=== PATIENT | female | born 1980 | race Caucasian/White ===

== ENCOUNTER 2020-04-11 14:32 | Outpatient (CLI) | payer OTHER, SELFPAY ==
--- NOTE | 2020-04-11 14:39 | XR_ITS ---
WS: [id number] ELBOW RIGHT TECHNIQUE: 2 views of the right elbow CLINICAL INFORMATION: RIGHT ELBOW PAIN COMPARISON: None. FINDINGS: No significant joint effusion. Distal humerus is normal in appearance. Normal radial head. Minimal ol ecranon spurring. No evidence of acute fracture dislocation. XR/XR elbow RT 2V [id number] IMPRESSION: 1. No acute fractures. 2. Slight olecranon spurring. 3. No other significant findings.
== END 2020-04-11 14:33 | disposition home or self-care (01) ==
PROVIDERS: Visit Provider Nurse Practitioner Family
DX: M25.521 Pain in right elbow (principal)
CPT/HCPCS: 73070

== ENCOUNTER 2020-04-23 14:04 | Outpatient (RCR) | payer OTHER, SELFPAY | END 2020-05-07 23:59 | disposition home or self-care (01) | LOC: SPT 14:04 | PROVIDERS: PCP Nurse Practitioner Family; Visit Provider Nurse Practitioner Family | DX: M25.521 Pain in right elbow (principal) | CPT/HCPCS: 97110; 97140; 97161 ==

== ENCOUNTER → 2020-07-24 09:13 | Outpatient (BNVA) | payer OTHER, SELFPAY | PROVIDERS: PCP Nurse Practitioner Family; Referring Provider Nurse Practitioner Family; Visit Provider Orthopaedic Surgery | DX: M25.521 Pain in right elbow (principal) | CPT/HCPCS: 73080 ==

== ENCOUNTER → 2020-09-15 13:22 | Outpatient (BNVA) | payer OTHER, SELFPAY | PROVIDERS: PCP Nurse Practitioner Family; Visit Provider Orthopaedic Surgery | DX: Z01.812 Encounter for preprocedural laboratory examination (principal); Z20.828 Contact with and (suspected) exposure to other viral communicable diseases | CPT/HCPCS: 87635 ==

== ENCOUNTER 2020-09-20 07:04 | Day surgery (SDC) | payer OTHER, SELFPAY ==
[2020-09-19 11:37] VITALS: BMI 30.1
--- NOTE | 2020-09-20 06:59 | W.PM.OPSUD ---
Surgery/Procedure H&P Update DATE OF PROCEDURE: September 20, 2020 DATE H&P PERFORMED: 09/05/20 PLANNED PROCEDURE: Operation Date: 09/20/20 08:15 Proposed Procedures p right elbow lateral epicondyle debridement 10312 M77.11(Right) - Jeanmarie Garcia MD
[2020-09-20 07:18] LABS: OR HCG Qualitative Urine Negative (Negative)
[2020-09-20 07:23] VITALS: BP 112/80; PULSE 89; RESP 18; TEMP 37.2; O2SAT 96
[2020-09-20] MEDS: sodium chloride 0.9% 1,000 ML 30 ML IV (07:25)
--- NOTE | 2020-09-20 07:59 | P.ANESASSM_ITS ---
Pre-Anesthetic Assessment Pre-Anesthetic Assessment: Height/Weight: Height 1.6 m Weight 77.111 kg Temp Pulse Resp BP Pulse Ox 99 F 89 18 112/80 96 09/20/20 07:23 09/20/20 07:23 09/20/20 07:23 09/20/20 07:23 09/20/20 07:23 Preop Diagnosis: Right lateral epicondylitis Proposed Procedure: Operation Date: 09/20/20 08:15 Proposed Procedures p right elbow lateral epicondyle debridement 40026 M77.11(Right) - Jeanmarie Garcia MD Was Beta Tova taken within 24 hours: N/A Last intake: Intake Last Liquid Date 09/19/20 Last Liquid Time 23:00 Last Solid Date 09/19/20 Last Solid Time 23:00 Social: Social History: No alcohol and No tobacco Exam: Pre-Anes Outpt Exam: alert, oriented x 3, clear to auscultation bilaterally and regular rate & rhythm Airway: Submandibular: WNL Cervical ROM: WNL MP: 2 Dentition: Full History/ROS: No significant history except as noted Anesthetic Plan: ASA status: 1 Anesthesia: Choice Other: [place] blk/MAC vs GA/LMA Risk of > 500 ml blood loss (7ml/kg in children): No Meds/Allergies Current Medications: Current Medications Generic Name Dose Route Start Last Admin Trade Name Freq PRN Reason Stop Dose Admin Sodium Chloride 1,000 mls @ 30 ml s/hr 09/20/20 07:15 09/20/20 07:25 Sodium Chloride 0.9% IV 09/21/20 07:14 30 mls/hr .Q24H VENESSA Administration PFSH Anesthesia PFSH: Social History Current gender identity: Female Data Anesthesia Other Labs: Laboratory Results - last 48 hr 09/20/20 07:17 Urine HCG, Qual Negative Cardiac Studies: No Data to Display
--- NOTE | 2020-09-20 09:06 | PM.OP ---
Operative Report Date of procedure: September 20, 2020 Pre-op Diagnosis: Right lateral epicondylitis Post-op diagnosis: same Post-op Findings: The patient has degenerative tissue at and just distal to the extensor tendon origin on the lateral epicondyle Procedure Done: Debridement right lateral epicondyle Pathology: none sent Anesthesia: General Estimated blood loss (mL): 10 Tourniquet time (min): 24 Findings: The patient has degenerative tissue at and just distal to the extensor tendon origin on the lateral epicondyle Condition: stable Disposition: PACU Procedure: The patient was given 2 g of Ancef and taken to the operating room. She was prepped and draped the usual fashion. A timeout was performed. A 3 cm long incision was made centered over the lateral epicondyle. Dissection was carried down under loupe magnification to the epicondyle and the extensor origin. Utilizing scalpel blade dissection was carried down sharply through periosteum and visualized proximal tendon to bone. The scalpel was used to elevate the origin up anteriorly and posteriorly and the split was carried approximately 1 cm distal to the level of the radial head. Poorly developed degenerative tissue was visualized at the extensor tendon insertion which was removed sharply with a scalpel blade. The tendon was then reapproximated with interrupted 2-0 Vicryl sutures with the knots buried. The skin was closed with 3-0 Vicryl and a running 3-0 Prolene. Xeroflo gauze, 4 x 4's, web roll, and a Jatinder wrap from wrist to arm were applied. She was placed in a sling, extubated, and taken to care of room in stable condition.
[2020-09-20 09:09] VITALS: BP 111/75; PULSE 84; RESP 11; TEMP 36.6; O2SAT 100
[2020-09-20 09:15] VITALS: BP 114/79; PULSE 81; RESP 17; O2SAT 100
[2020-09-20 09:20] VITALS: BP 110/77; PULSE 72; RESP 16; TEMP 36.6; O2SAT 99
[2020-09-20 09:29] VITALS: BP 105/66; PULSE 74; RESP 18; TEMP 36.2; O2SAT 100
[2020-09-20 09:39] VITALS: BP 117/67; PULSE 77; RESP 18; O2SAT 99
--- NOTE | 2020-09-20 10:30 | ANE.PACU2 ---
Inpatient post-anesthesia follow up: Airway intact: Yes Vital signs: Temperature 97.2 F Pulse Rate 77 Respiratory Rate 18 Blood Pressure 117/67 Pulse Oximetry 99 Oxygen Delivery Me thod Room Air Oxygen Flow Rate 6 Fraction of Inspir ed Oxygen Hydration adequate: Yes Nausea and vomiting: No Pain level: 1 Mental status: Baseline
== END 2020-09-20 10:08 | disposition home or self-care (01) ==
PROVIDERS: Anesthesiology; PCP Nurse Practitioner Family; Visit Provider Orthopaedic Surgery
PROC: (CPT 24359; principal; 2020-09-20 08:15)
DX: M77.11 Lateral epicondylitis, right elbow (principal)
CPT/HCPCS: 24359; 12345; 84703; J0690; J1100; J1885; J2370; J2405; J2704; J3010; J3490; J7030

== ENCOUNTER → 2021-08-19 16:08 | Outpatient (BNVA) | payer OTHER, SELFPAY | PROVIDERS: PCP Nurse Practitioner Family; Visit Provider Obstetrics & Gynecology | DX: Z12.4 Encounter for screening for malignant neoplasm of cervix (principal); N93.9 Abnormal uterine and vaginal bleeding, unspecified; N92.6 Irregular menstruation, unspecified; R53.83 Other fatigue; R63.5 Abnormal weight gain | CPT/HCPCS: 84443; 87624; 88305 ==

== ENCOUNTER → 2021-08-23 14:05 | Outpatient (BNVA) | payer OTHER, SELFPAY | PROVIDERS: PCP Nurse Practitioner Family; Visit Provider Obstetrics & Gynecology | DX: N94.10 Unspecified dyspareunia (principal); N93.9 Abnormal uterine and vaginal bleeding, unspecified; Z97.5 Presence of (intrauterine) contraceptive device | CPT/HCPCS: 76830 ==

== ENCOUNTER 2021-08-29 11:11 | Day surgery (SDC) | payer OTHER, SELFPAY ==
[2021-08-29] VITALS (7 sets, daily range): BP systolic 110–137; BP diastolic 60–84; PULSE 75–89; RESP 17–19; TEMP 36.4–36.9; O2SAT 98–100; BMI 33.6
[2021-08-29 11:26] LABS: OR HCG Qualitative Urine Negative (Negative)
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
[2021-08-29] MEDS: sodium chloride 0.9% 1,000 ML 30 ML IV ×2 (11:45→11:52)
--- NOTE | 2021-08-29 11:51 | W.PM.OPSUD ---
Surgery/Procedure H&P Update DATE OF PROCEDURE: August 29, 2021 DATE H&P PERFORMED: 08/29/21 H&P UPDATE INFORMATION: I have reviewed H&P completed within last 30 days, I have examined patient prior to procedure and No changes to prior documentation PREOP DIAGNOSIS: embedded iud, endometrial polyps and fibroids PLANNED PROCEDURE: Operation Date: 08/29/21 12:30 Proposed Procedures p Hysteroscopic IUD Removal(Not Applicable) - Francesco Nieto MD
[2021-08-29 11:54] LABS: OR HCG Qualitative Urine Negative (Negative)
[2021-08-29] MEDS: acetaminophen 1,000 MG/100 ML PIGGYBACK 400 MG IV (12:00)
[2021-08-29 12:09] LABS: Basophils % 0.3 %; Eosinophils # 0.1 10^3/uL (0.0-0.8); Eosinophils % 1.9 %; Hematocrit 43.4 % (37.0-47.0); Hemoglobin 14.6 g/dL (11.5-15.3); Lymphocytes # 2.1 10^3/uL (0.8-4.8); Lymphocytes % 28.3 %; Mean Corpuscular HGB Conc 33.6 g/dL (30.0-36.0); Mean Corpuscular Hemoglobin 30.2 pg (28.0-34.0); Mean Corpuscular Volume 89.9 fl (81-99); Mean Platelet Volume 9.9 fL (7.4-10.4); Monocytes # 0.3 10^3/uL (0.2-0.9); Monocytes % 4.2 %; Neutrophils # 4.83 10^3/uL (1.8-7.7); Nucleated Red Blood Cells % 0 %; Platelet Count 221 10^3/cmm (130-400); Red Blood Count 4.83 10^6/uL (4.1-5.3); Red Cell Distribution Width 11.9 % (12.1-15.1); White Blood Count 7.4 10^3/uL (4.0-10.0)
--- NOTE | 2021-08-29 12:23 | PM.OP ---
Operative Report Date of procedure: August 29, 2021 Pre-op Diagnosis: embedded iud, endometrial polyps and fibroids Post-op diagnosis: same Post-op Findings: Embedded IUD. Procedure Done: Hysteroscopy: Hysteroscopic removal of IUD, dilation and curettage Specimens removed/disposition: Endometrial curettings Surgeon: Francesco Nieto MD Anesthesia: MAC Estimated blood loss (mL): 5 IV fluids (mL): 300 Complications: None Findings: Embedded IUD Condition: stable Disposition: PACU Brief History: Mrs. Katz 40-year-old female with pelvic pain. Diagnosed with an embedded IUD and possible endometrial polyp. She was informed of the risks and benefits of a hysteroscopy with dilation and curettage. Risks included but were not limited to bleeding, infection, injury to the vulva, vagina, or cervix, and uterine perforation. The patient expressed understanding of the risks involved, all questions were answered, and the patient consented to the procedure and signed the informed consent. . Procedure: After informed consent, the risks included but were not limited to bleeding, infection, injury to internal organs. The patient was counseled on a possible laparotomy and on the potential need for hysterectomy. The patient expressed understanding of the risks involved, all questions were answered, and the patient consented to the procedure. The patient was taken to the operating room where general anesthesia was administered. She was placed in the dorsal lithotomy position and prepped and draped in sterile fashion. A time out procedure was performed. The patient was examined under anesthesia and found to have a normal uterus with normal adnexa. A sterile speculum was placed in the vagina, and the anterior lip of cervix was grasped with the single toothed tenaculum. The uterus was then gently sounded to 7 cm, and the cervix was dilated with cervical dilators. A 2.7-cm hysteroscope advanced gently to the uterine fundus while visualizing the monitor. Survey of the uterine cavity showed: The embedded IUD to the posterior uterine wall. A grasper was inserted to the hysteroscopy channel and the IUD was grasped and removed from the uterus without complications. The fundus normal proliferative endometrium; left ostium, and lateral wall with proliferative endometrium; right ostium, and lateral wall with proliferative endometrium; anterior and posterior jarrett are with proliferative endometrium; endocervical canal is normal. The curette was advanced gently to the uterine fundus rotated to clear the uterus. The curettage was then performed until a gritty texture was noted. Hysteroscopy was reinserted. There was minimal bleeding noted and the tenaculum removed with goad hemostasis noted. The patient tolerated the procedure well. The patient was taken to the recovery area in stable condition.
[2021-08-29 12:25] LABS: Alanine Aminotransferase 13 U/L (0-33); Albumin Level 4.1 g/dL (3.5-5.2); Alkaline Phosphatase 116 IU/L (35-105); Anion Gap 18.9 (5-19); Aspartate Amino Transferase 13 U/L (0-32); Blood Urea Nitrogen 8 mg/dL (6-20); Calcium 8.3 mg/dL (8.5-10.5); Carbon Dioxide 19 mmol/L (22-29); Chloride 102 mmol/L (98-107); Globulin 3.6 g/dL (1.3-4.6); Glomerular Filtration Rate 109.6 mL/min (90-130); Glucose 88 mg/dL (65-115); Osmolality Calculated 280 mOsm/kg (285-295); Potassium 3.9 mmol/L (3.5-5.1); Sodium 136 mmol/L (136-145); Total Bilirubin 0.3 mg/dL (0.15-1.2); Total Protein 7.7 g/dL (6.6-8.7)
[2021-08-29] MEDS: ibuprofen 800 mg tablet PO (13:23)
--- NOTE | 2021-08-29 15:10 | ANE.PACU2 ---
Inpatient post-anesthesia follow up: Airway intact: Yes Vital signs: Temperature 98.0 F Pulse Rate 88 Respiratory Rate 18 Blood Pressure 126/77 Pulse Oximetry 100 Oxygen Delivery Me thod Room Air Oxygen Flow Rate Fraction of Inspir ed Oxygen Hydration adequate: Yes Nausea and vomiting: No Pain level: 1 Mental status: Baseline
== END 2021-08-29 14:25 | disposition home or self-care (01) ==
PROVIDERS: PCP Nurse Practitioner Family; Visit Provider Obstetrics & Gynecology
PROC: 0UPD8HZ Removal of Contraceptive Device from Uterus and Cervix, Via Natural or Artificial Opening Endoscopic (ICD-10-PCS; CPT 58301; principal; 2021-08-29 12:30)
PROC: (CPT 58120; 2021-08-29 12:30)
DX: T83.39XA Other mechanical complication of intrauterine contraceptive device, initial encounter (principal); N84.0 Polyp of corpus uteri; D25.9 Leiomyoma of uterus, unspecified; J44.9 Chronic obstructive pulmonary disease, unspecified
CPT/HCPCS: 58562; 36415; 80053; 81025; 84703; 85025; 88305; J0690; J2704; J3010; J7030

== ENCOUNTER → 2021-10-17 13:18 | Outpatient (BNVA) | payer OTHER, SELFPAY | PROVIDERS: PCP Nurse Practitioner Family; Visit Provider Obstetrics & Gynecology | DX: Z30.9 Encounter for contraceptive management, unspecified (principal) | CPT/HCPCS: 81025 ==

== ENCOUNTER 2022-03-31 09:54 | Outpatient (CLI) | payer OTHER, SELFPAY ==
[2022-03-31 10:29] LABS: Basophils % 0.4 %; Eosinophils # 0.2 10^3/uL (0.0-0.8); Hematocrit 43.3 % (37.0-47.0); Lymphocytes # 2.3 10^3/uL (0.8-4.8); Lymphocytes % 25.4 %; Mean Corpuscular HGB Conc 32.3 g/dL (30.0-36.0); Mean Corpuscular Hemoglobin 30.7 pg (28.0-34.0); Mean Platelet Volume 9.5 fL (7.4-10.4); Monocytes # 0.4 10^3/uL (0.2-0.9); Monocytes % 4.9 %; Neutrophils # 5.97 10^3/uL (1.8-7.7); Neutrophils % 66.6 %; Nucleated Red Blood Cells % 0 %; Platelet Count 220 10^3/cmm (130-400); Red Blood Count 4.56 10^6/uL (4.1-5.3); Red Cell Distribution Width 12.8 % (12.1-15.1)
[2022-03-31 10:38] LABS: Erythrocyte Sedimentation Rate 6 mm/hr (0-15)
[2022-03-31 11:39] LABS: Alanine Aminotransferase 12 U/L (0-33); Alkaline Phosphatase 103 IU/L (35-105); Aspartate Amino Transferase 11 U/L (0-32); Blood Urea Nitrogen 9 mg/dL (6-20); Calcium 8.8 mg/dL (8.5-10.5); Carbon Dioxide 26 mmol/L (22-29); Chloride 102 mmol/L (98-107); Chol HDL Ratio 2.86 mg/dL (0.0-4.40); Cholesterol 163 mg/dL (0-200); Globulin 2.8 g/dL (1.3-4.6); Glomerular Filtration Rate 109.1 mL/min (90-130); Glucose 93 mg/dL (65-115); HDL Cholesterol 57 mg/dL (60-100); LDL Cholesterol Calculated 84 mg/dL (50-129); LDL HDL Ratio 1.47 RATIO (0.00-3.22); Osmolality Calculated 284 mOsm/kg (285-295); Sodium 138 mmol/L (136-145); Thyroid Stimulating Hormone 1.85 uIU/mL (0.27-4.20); Total Bilirubin 0.3 mg/dL (0.15-1.2); Total Protein 6.8 g/dL (6.6-8.7); Triglycerides 109 mg/dL (0-150)
[2022-04-01 11:09] LABS: COMPLEMENT COMPONENT C3C 126 mg/dL (83-193); COMPLEMENT COMPONENT C4C 29 mg/dL (15-57)
[2022-04-01 13:13] LABS: THYROID PEROXIDASE ANTIBODIES 1 IU/mL (<9)
[2022-04-01 15:02] LABS: CENTROMERE B ANTIBODY <1.0 NEG AI (<1.0 NEG); JO-1 ANTIBODY <1.0 NEG AI (<1.0 NEG); RNP ANTIBODY <1.0 NEG AI (<1.0 NEG); SCL-70 ANTIBODY <1.0 NEG AI (<1.0 NEG); SJOGREN'S ANTIBODY (SS-A) <1.0 NEG AI (<1.0 NEG); SM ANTIBODY <1.0 NEG AI (<1.0 NEG); SS-B <1.0 NEG AI (<1.0 NEG)
[2022-04-02 11:52] LABS: ANA SCREEN, IFA POSITIVE (NEGATIVE); Anti-Nuclear AB Pattern #2 Nuclear, Speckled
[2022-04-02 12:27] LABS: COMPLEMENT, TOTAL (CH50) >60 U/mL (31-60)
[2022-04-03 14:03] LABS: DNA AB (DS) CRITHIDIA,IFA NEGATIVE (NEGATIVE)
== END 2022-03-31 09:55 | disposition home or self-care (01) ==
LOC: LAB 09:56
PROVIDERS: PCP Family Medicine; Visit Provider Family Medicine
DX: L30.1 Dyshidrosis [pompholyx] (principal); M32.9 Systemic lupus erythematosus, unspecified; Z76.89 Persons encountering health services in other specified circumstances
CPT/HCPCS: 36415; 80053; 80061; 84443; 85025; 85651; 86160; 86162; 86235; 86255; 86376; 86431

== ENCOUNTER → 2022-04-29 10:25 | Outpatient (BNVA) | payer OTHER, SELFPAY | PROVIDERS: PCP Family Medicine; Referring Provider Family Medicine; Visit Provider Internal Medicine Rheumatology | DX: Z11.59 Encounter for screening for other viral diseases (principal); Z79.899 Other long term (current) drug therapy; R76.8 Other specified abnormal immunological findings in serum; M19.90 Unspecified osteoarthritis, unspecified site; M45.6 Ankylosing spondylitis lumbar region; R21 Rash and other nonspecific skin eruption | CPT/HCPCS: 36415; 73130; 73630; 85651; 86140; 86200; 86480; 86704; 86803; 86812; 87340 ==

== ENCOUNTER → 2024-02-18 11:50 | Outpatient (BNVA) | payer OTHER, SELFPAY | PROVIDERS: PCP Family Medicine; Visit Provider Nurse Practitioner Family | DX: R00.2 Palpitations (principal); R53.83 Other fatigue; M32.9 Systemic lupus erythematosus, unspecified; R00.0 Tachycardia, unspecified | CPT/HCPCS: 80053; 80061; 84443; 85025; 86003; 86008; 86038; 93005 ==

== ENCOUNTER 2024-11-18 09:48 | Outpatient (CLI) | payer OTHER, SELFPAY ==
--- NOTE | 2024-11-18 09:53 | MM_ITS ---
WS: [id number] BILATERAL SCREENING DIGITAL TOMOSYNTHESIS MAMMOGRAM WITH CAD HISTORY: SCREENING COMPARISON: 06/23/2019 Bilateral CC and MLO views with tomosynthesis and synthetic mammography submitted. Computer aided detection analyzed. Breast composition: There are scattered areas of fibroglandular density. No suspicious masses, microcalcifications or architectural distortion. MM/MM scr BI tomosynthesis [id number] IMPRESSION: BI-RADS: 1 - Negative. FOLLOW UP: 1 Year Follow-up
== END 2024-11-18 09:49 | disposition home or self-care (01) ==
LOC: RAD 09:50
PROVIDERS: Visit Provider Family Medicine
DX: Z12.31 Encounter for screening mammogram for malignant neoplasm of breast (principal); R92.323 Mammographic fibroglandular density, bilateral breasts
CPT/HCPCS: 77063; 77067

== ENCOUNTER → 2024-11-30 10:31 | Outpatient (BNVA) | payer OTHER, SELFPAY | PROVIDERS: PCP Family Medicine; Visit Provider Family Medicine | DX: Z91.014 Allergy to mammalian meats (principal); N95.1 Menopausal and female climacteric states | CPT/HCPCS: 82306; 82607; 82672; 84144 ==

== ENCOUNTER → 2024-12-08 13:15 | Outpatient (BNVA) | payer OTHER, SELFPAY | PROVIDERS: PCP Family Medicine; Visit Provider Family Medicine | DX: Z91.014 Allergy to mammalian meats (principal) | CPT/HCPCS: 86008 ==